=== PATIENT | male | born 1935 | race Caucasian/White ===

== ENCOUNTER → 2024-01-09 06:42 | Outpatient (REF) | payer MEDICARE, BC, SELFPAY ==
[2024-01-09 09:32] LABS: Urine Albumin Trace (Neg - Trace); Urine Bilirubin Negative (Negative); Urine Character Clear (Clear); Urine Color Yellow; Urine Glucose Negative (Negative); Urine Ketone Negative (Negative); Urine Leukocyte Negative (Negative); Urine Nitrite Negative (Negative); Urine Occult Blood 1+ (Negative); Urine Urobilinogen Negative (Neg - 1+)
[2024-01-09 09:42] LABS: % Eosinophils 2.3 % (0-6); % Immature Granulocytes 0.5 % (0-0.5); % Lymphocytes 24.1 % (20.5-51.1); % Monocytes 9.1 % (1.7-9.3); Absolute Basophils 0.1 10^3/uL (0-0.2); Absolute Eosinophils 0.1 10^3/uL (0-0.7); Absolute Lymphocytes 1.4 10^3/uL (1.2-3.4); Absolute Monocytes 0.5 10^3/uL (0.1-0.6); Absolute Neutrophils 3.6 10^3/uL (1.4-6.5); Hematocrit 40.9 % (39.0-52.0); Hemoglobin 13.1 g/dL (13.0-18.0); Mean Corpuscular Hgb 26.8 pg (27.0-31.0); Mean Corpuscular Volume 83.8 fL (80.0-94.0); Mean Platelet Volume 11.1 fL (7.4-10.4); Nucleated Red Blood Cells % 0 % (-); Platelet Count 193 10^3/uL (130-400); Red Blood Cell Count 4.88 10^6/uL (4.70-6.10); Red Cell Dist. Width 18.9 % (11.5-14.5); White Blood Cell Count 5.7 10^3/uL (4.8-10.8)
[2024-01-09 10:07] LABS: ALT (SGPT) 25 U/L (0-50); AST (SGOT) 33 U/L (17-59); Albumin 4.5 g/dl (3.5-5.0); Alkaline Phosphatase 75 U/L (38-126); Blood Urea Nitrogen 25 mg/dl (9-20); Calcium 9.7 mg/dl (8.4-10.2); Carbon Dioxide 30 mmol/L (22-30); Chloride 106 mmol/L (98-107); Glucose 108 mg/dl (70-99); HDL Cholesterol 64 mg/dl; LDL Cholesterol, Calculated 91 mg/dl; Potassium 4.7 mmol/L (3.5-5.1); Sodium 140 mmol/L (135-145); Total Bilirubin 1.5 mg/dl (0.2-1.3); Total Cholesterol 173 mg/dl (50-199); Total Protein 6.6 g/dl (6.3-8.2); Triglyceride 93 mg/dl (10-149); Very Low Density Lipoprotein 18 mg/dl (0-30); eGFR > 60.00
[2024-01-09 10:20] LABS: Vitamin D, 25-OH*** 58.2 ng/mL (30-80)
[2024-01-09 11:20] LABS: Urine Mucus Few
[2024-01-09 11:21] LABS: Urine Amorphous Seen
== END ==
LOC: RAD 06:42
PROVIDERS: ATTENDING PHYSICIAN Nurse Practitioner Family; FAMILY PHYSICIAN Internal Medicine
DX: I71.40 Abdominal aortic aneurysm, without rupture, unspecified (principal); E55.9 Vitamin D deficiency, unspecified; I10 Essential (primary) hypertension; E78.2 Mixed hyperlipidemia; Z00.00 Encounter for general adult medical examination without abnormal findings; Z79.899 Other long term (current) drug therapy
CPT/HCPCS: 36415; 76770; 80053; 80061; 81003; 81015; 82306; 85025

== ENCOUNTER → 2024-02-13 10:11 | Outpatient (REF) | payer MEDICARE, BC, SELFPAY ==
[2024-02-13 18:44] LABS: Urine Albumin Trace (Neg - Trace); Urine Bilirubin Negative (Negative); Urine Character Clear (Clear); Urine Color Yellow; Urine Glucose Negative (Negative); Urine Ketone Negative (Negative); Urine Leukocyte Negative (Negative); Urine Nitrite Negative (Negative); Urine Occult Blood 1+ (Negative); Urine Urobilinogen Negative (Neg - 1+)
[2024-02-13 19:20] LABS: Urine Bacteria Few (Negative)
== END ==
LOC: CLAB 10:11
PROVIDERS: ATTENDING PHYSICIAN Nurse Practitioner Family
DX: R30.0 Dysuria (principal)
CPT/HCPCS: 81003; 81015; 87086

== ENCOUNTER → 2024-02-14 08:47 | Outpatient (REF) | payer MEDICARE, BC, SELFPAY | LOC: RCS 08:47 | PROVIDERS: ATTENDING PHYSICIAN Internal Medicine | DX: I35.0 Nonrheumatic aortic (valve) stenosis (principal) | CPT/HCPCS: 93306 ==

== ENCOUNTER → 2024-03-22 09:32 | Outpatient (REF) | payer MEDICARE, BC, SELFPAY | LOC: RAD 09:32 | PROVIDERS: ATTENDING PHYSICIAN Nurse Practitioner Family | DX: J06.9 Acute upper respiratory infection, unspecified (principal); R09.89 Other specified symptoms and signs involving the circulatory and respiratory systems | CPT/HCPCS: 71046 ==

== ENCOUNTER → 2025-01-11 09:33 | Outpatient (REF) | payer MEDICARE, BC, SELFPAY ==
[2025-01-11 10:12] LABS: Urine Character Clear (Clear)
[2025-01-11 10:21] LABS: Hematocrit 27.2 % (39.0-52.0); Hemoglobin 7.6 g/dL (13.0-18.0); Mean Corp Hgb Conc. 27.9 g/dL (33.0-37.0); Mean Corpuscular Volume 63.7 fL (80.0-94.0); Platelet Count 229 10^3/uL (130-400); Red Cell Dist. Width 19.8 % (11.5-14.5)
[2025-01-11 10:42] LABS: Urine Red Blood Cell 0-2 /HPF (0-2)
[2025-01-11 10:43] LABS: Urine White Cell 21-25 /HPF (0-5)
[2025-01-11 11:57] LABS: Urine Squamous Cell 0-2 /LPF (Few)
[2025-01-11 11:59] LABS: Urine White Cell Cast 0-2 /LPF
[2025-01-11 12:30] LABS: ALT (SGPT) 15 U/L (0-50); AST (SGOT) 21 U/L (17-59); Albumin 4.4 g/dl (3.5-5.0); Alkaline Phosphatase 64 U/L (38-126); Blood Urea Nitrogen 21 mg/dl (9-20); Calcium 9.1 mg/dl (8.4-10.2); Carbon Dioxide 25 mmol/L (22-30); Chloride 110 mmol/L (98-107); Glucose 95 mg/dl (70-99); HDL Cholesterol 51 mg/dl; LDL Cholesterol, Calculated 67 mg/dl; Potassium 4.5 mmol/L (3.5-5.1); Sodium 141 mmol/L (135-145); Total Protein 6.5 g/dl (6.3-8.2); Very Low Density Lipoprotein 14 mg/dl (0-30); eGFR > 60.00
[2025-01-11 12:46] LABS: Vitamin D, 25-OH*** 56.5 ng/mL (30-80)
[2025-01-11 12:59] LABS: PSA, Total - Screen 0.94 ng/ml (0.0-4.0)
== END ==
LOC: REG 09:33
PROVIDERS: ATTENDING PHYSICIAN Internal Medicine
DX: I10 Essential (primary) hypertension (principal); E78.2 Mixed hyperlipidemia; Z00.00 Encounter for general adult medical examination without abnormal findings; Z12.5 Encounter for screening for malignant neoplasm of prostate; Z79.899 Other long term (current) drug therapy; E55.9 Vitamin D deficiency, unspecified
CPT/HCPCS: 36415; 80053; 80061; 81003; 81015; 82306; 85027; G0103

== ENCOUNTER 2025-01-12 11:02 | Emergency (ER) | payer MEDICARE, BC, SELFPAY ==
[2025-01-12 11:12] VITALS: BP 141/60
--- NOTE | 2025-01-12 12:55 | ED.GENMED ---
History of Present Illness
General
Chief Complaint: Abnormal Lab Value
Time Seen by Provider: 01/12/25 12:12
History of Present Illness
History of Present Illness:
89-year-old male with history of DVT and peripheral vascular disease on Eliquis presenting to the emergency department for low hemoglobin. Patient had his yearly physical with his doctor, had routine blood work sent yesterday. He was called today
to come to the hospital with a hemoglobin of 7.6, previously 13.1. Per patient and patient's primary care doctor, previously had a workup with his GI doctor in [place]. Patient had endoscopy and colonoscopy in December 2022 which showed some
gastritis/esophagitis changes and some polyps. Patient was thought to have iron deficiency anemia, started on iron, however patient reports that his primary care doctor stopped iron about a year ago. He notes in the past few weeks he has been
having some dyspnea on exertion and some generalized fatigue, however otherwise denies seeing any blood in his stool or any blood in his urine. Denies any chest pain or abdominal pain. Denies any additional acute medical complaints
Phy Exam
Physical Exam
Physical Exam:
General: Well-appearing, no clinical signs of dehydration, nontoxic and in no acute distress
HEENT: protecting airway
Neck: appears supple
CV: Normal heart rate, regular rhythm
Resp: No accessory muscle use, no increased work of breathing, lungs clear to auscultation bilaterally
Abd: Soft and non-distended, no tenderness to palpation, Hemoccult negative
Extremities: No deformities, no swelling
Neuro: alert, no focal neurologic deficit
: deferred
Rectal: deferred
Psych: Normal affect
Skin: Intact
Course
Orders/Labs/Results
Orders:
Orders
01/12/25 13:08
Type+Screen Urgent
Complete Blood Count/With Diff Urgent
Comprehensive Metabolic Panel Urgent
Prothrombin Time Urgent
01/12/25 13:28
ABO2 Urgent
BBK Wristband Number:
Associate notified that ABO2 has been ordered: [id number]
Date: 01/12/25
Time: 13:19
Rooming House Inspector ID: [id number]
Abnormal Lab Results
01/12/25
13:08
RBC 4.19 L 10^6/uL
(4.70-6.10)
Hgb 7.3 L g/dL
(13.0-18.0)
Hct 26.1 L %
(39.0-52.0)
MCV 62.3 L fL
(80.0-94.0)
MCH 17.4 L pg
(27.0-31.0)
MCHC 28.0 L g/dL
(33.0-37.0)
RDW 19.9 H %
(11.5-14.5)
Absolute Lymphs (auto) 1.0 L 10^3/uL
(1.2-3.4)
Lymphocytes % 20.0 L %
(20.5-51.1)
Monocytes % 10.8 H %
(1.7-9.3)
PT 17.6 H Sec
(11.4-14.6)
Chloride 109 H mmol/L
(98-107)
BUN 23 H mg/dl
(9-20)
Glucose 111 H mg/dl
(70-99)
01/12/25 13:08
01/12/25 13:08
Vital Signs
Initial and Last Documented VS:
Initial Vital Signs
Temp Pulse Resp BP Pulse Ox
98.4 F 67 18 141/60 98
01/12/25 11:12 01/12/25 11:12 01/12/25 11:12 01/12/25 11:12 01/12/25 11:12
Last Documented Vital Signs
Temp Pulse Resp BP Pulse Ox
98.4 F 67 18 141/60 98
01/12/25 11:12 01/12/25 11:12 01/12/25 11:12 01/12/25 11:12 01/12/25 12:55
MDM/Problems Addressed
MDM/Problems Addressed:
89-year-old male with history of DVT and peripheral vascular disease on Eliquis presenting for concern of low hemoglobin on outpatient blood tests. Vital signs on arrival are normal
On exam patient is resting comfortably, no acute distress. Unremarkable cardiac and pulmonary exam. No tenderness to the abdomen. Hemoccult negative brown stool. No present hemodynamic instability or any signs of acute bleeding. Patient had
blood testing yesterday, hemoglobin of 7.6 with prior hemoglobin 13.1 a year ago. Again possible iron deficiency, all of blood counts are generally low. Had previously been on iron supplementation. Will repeat blood test to ensure no acute need
for transfusion. Urine obtained yesterday, no blood in the urine. Patient denies any merlin hematuria.
14:10 - Patient's hemoglobin is 7.3, otherwise no acute abnormality. In discussion with his primary care doctor, again suspicion is for iron deficiency anemia. Will transfuse here given his drop in hemoglobin and restart on iron with ultimate plan
for outpatient GI follow-up and possible hematology follow-up.
*Pulse Oximetry
SaO2: 98
Oxygen Mode of Delivery: Room air
Patient hypoxic: no
*Critical Care Note
Total Time (30-74mins, 75-104mins- exclusive of procedures): Not Applicable
ED Attending Note
-
Portions of this chart may have been created with voice recognition software.� Occasional wrong word or��sound alike� substitutions may have occurred due to the inherent limitations of voice recognition software.
Discharge Plan
Departure
Prescriptions:
No Action
atorvastatin 80 MG tablet
80 mg PO QPM
cod liver oil 1 CAP capsule
1 cap PO HS
lysine 1,000 MG tablet
1,000 mg PO DAILY
amlodipine 2.5 MG tablet
2.5 mg PO HS
aspirin [Maria M Low Dose Aspirin] 81 MG tablet,delayed release (DR/EC)
81 mg PO DAILY
tamsulosin [Flomax] 0.4 MG capsule
0.4 mg PO HS
lisinopril 10 MG tablet
10 mg PO BID
finasteride 5 MG tablet
5 mg PO DAILY
cholecalciferol (vitamin D3) [Vitamin D3] 1,000 UNIT capsule
1,000 unit PO DAILY
apixaban [Eliquis] 2.5 MG tablet
2.5 mg PO BID
Referrals:
Emmanuel Polanco DO [Family Provider, Internal Medicine]
Interventions
Interventions:
*Risk Screen - Suicide Last Done: 01/12/25 11:12
*General Assessment Last Done: 01/12/25 13:03
*Neglect/Abuse Screening Last Done: 01/12/25 13:03
*ED- Fall Risk Assessment Last Done: 01/12/25 13:03
*ED COVID-19 Vaccine History Last Done: 01/12/25 13:03
Discharge Date and Time
Print Language: BAHRAINI
[2025-01-12 13:04] VITALS: BMI 27.7
[2025-01-12 13:34] LABS: ALT (SGPT) 15 U/L (0-50); AST (SGOT) 23 U/L (17-59); Albumin 4.2 g/dl (3.5-5.0); Alkaline Phosphatase 50 U/L (38-126); Blood Urea Nitrogen 23 mg/dl (9-20); Calcium 9.4 mg/dl (8.4-10.2); Carbon Dioxide 25 mmol/L (22-30); Chloride 109 mmol/L (98-107); Estimated Creatinine Clearance 70 ml/min; Glucose 111 mg/dl (70-99); Potassium 4.8 mmol/L (3.5-5.1); Sodium 139 mmol/L (135-145); Total Protein 6.5 g/dl (6.3-8.2); eGFR > 60.00
[2025-01-12 13:39] LABS: INR 1.41; PT 17.6 Sec (11.4-14.6)
[2025-01-12 13:41] LABS: Hematocrit 26.1 % (39.0-52.0); Hemoglobin 7.3 g/dL (13.0-18.0); Mean Corp Hgb Conc. 28.0 g/dL (33.0-37.0); Mean Corpuscular Volume 62.3 fL (80.0-94.0); Nucleated Red Blood Cells % 0 % (-); Platelet Count 213 10^3/uL (130-400); Red Cell Dist. Width 19.9 % (11.5-14.5)
[2025-01-12 14:08] LABS: Normal RBC Morphology No
[2025-01-12 14:10] LABS: Anisocytosis +1; Hypochromasia +1; Macrocytosis +1
[2025-01-12 14:12] LABS: Poikilocytosis Slight
[2025-01-12 14:13] LABS: Acanthocytes FEW; Schistocytes RARE
[2025-01-12 14:14] LABS: Ovalocytes +1
[2025-01-12 14:17] LABS: Rouleaux Slight
[2025-01-12 14:41] VITALS: BP 134/68
[2025-01-12 15:00] VITALS: BP 136/58
[2025-01-12 15:03] VITALS: BP 136/58
[2025-01-12 16:00] VITALS: BP 149/57
[2025-01-12 16:45] VITALS: BP 133/65
== END 2025-01-12 17:17 | disposition home or self-care (01) ==
LOC: EMR 11:02
PROVIDERS: EMERGENCY PHYSICIAN Student in an Organized Health Care Education/Training Program; FAMILY PHYSICIAN Internal Medicine
DX: D50.9 Iron deficiency anemia, unspecified (principal); I73.9 Peripheral vascular disease, unspecified; Z79.01 Long term (current) use of anticoagulants; Z79.82 Long term (current) use of aspirin; Z86.718 Personal history of other venous thrombosis and embolism
CPT/HCPCS: 99285; 36430; 80053; 85025; 85610; 86850; 86900; 86901; 86920; P9016

== ENCOUNTER → 2025-03-08 10:02 | Outpatient (REF) | payer MEDICARE, BC, SELFPAY ==
[2025-03-08 11:29] LABS: Hematocrit 46.0 % (39.0-52.0); Hemoglobin 14.2 g/dL (13.0-18.0); Mean Corp Hgb Conc. 30.9 g/dL (33.0-37.0); Mean Corpuscular Volume 85.0 fL (80.0-94.0); Nucleated Red Blood Cells % 0 % (-); Platelet Count 161 10^3/uL (130-400)
[2025-03-08 12:06] LABS: Iron 62 ug/dl (49-181)
[2025-03-08 12:16] LABS: Total Iron Binding Capacity 297 ug/dl (261-462)
[2025-03-08 12:29] LABS: Ferritin 31.8 ng/ml (17.9-464.0)
== END ==
LOC: REG 10:02
PROVIDERS: ATTENDING PHYSICIAN Internal Medicine
DX: D50.0 Iron deficiency anemia secondary to blood loss (chronic) (principal)
CPT/HCPCS: 36415; 82728; 83540; 83550; 85025